=== PATIENT | male | born 1985 | race Caucasian/White ===

== ENCOUNTER 2017-08-25 15:59 | Emergency (ER) | payer OTHER ==
[~2017-08-25] VITALS: Ht 177.8 cm; Wt 80.0 kg
[2017-08-25 16:29] VITALS: BP 134/78; PULSE 80; RESP 16; TEMP 98.8; O2SAT 99
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
[2017-08-25] MEDS ORDERED: KETOROLAC TROMETHAMINE 60 MG/2 ML (IM) VIAL IM ONE (17:45)
[2017-08-25] MEDS ORDERED: DICL75TA PO (18:00)
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
[2017-08-25] MEDS ORDERED: AMOX875T PO (18:31)
== END 2017-08-25 22:47 ==
LOC: NEPE 15:59
DX: S09.90XA Unspecified injury of head, initial encounter (principal); S00.83XA Contusion of other part of head, initial encounter; S00.511A Abrasion of lip, initial encounter; S00.411A Abrasion of right ear, initial encounter; Y04.2XXA Assault by strike against or bumped into by another person, initial encounter
CPT/HCPCS: 70450; 70486; 71101; 72125; 96372; 99284; J1885